=== PATIENT | male | born 1945 | race Caucasian/White ===

== ENCOUNTER 2024-03-11 06:28 | Day surgery (SDC) | payer OTHER, SELFPAY ==
[2024-03-11 07:15] LABS: Glucose - Point of Care 122 mg/dl (70-99)
== END 2024-03-11 08:37 | disposition home or self-care (01) ==
LOC: GI 06:28
PROVIDERS: ATTENDING PHYSICIAN Internal Medicine Gastroenterology
DX: Z12.11 Encounter for screening for malignant neoplasm of colon (principal); K57.30 Diverticulosis of large intestine without perforation or abscess without bleeding; K64.8 Other hemorrhoids; Z86.0100 Personal history of colon polyps, unspecified
CPT/HCPCS: G0105; 82962

== ENCOUNTER → 2024-08-09 13:00 | Outpatient (REF) | payer OTHER, SELFPAY | LOC: RAD 13:00 | PROVIDERS: ATTENDING PHYSICIAN Registered Nurse; FAMILY PHYSICIAN Internal Medicine; REFERRING PHYSICIAN Internal Medicine | DX: I73.9 Peripheral vascular disease, unspecified (principal); M54.16 Radiculopathy, lumbar region | CPT/HCPCS: 72110 ==

== ENCOUNTER → 2024-08-28 13:21 | Outpatient (REF) | payer OTHER, SELFPAY | LOC: MRI 3T 13:21 | PROVIDERS: ATTENDING PHYSICIAN Internal Medicine; FAMILY PHYSICIAN Internal Medicine | DX: M54.16 Radiculopathy, lumbar region (principal) | CPT/HCPCS: 72148 ==